=== PATIENT | female | born 1995 | race Caucasian/White ===

== ENCOUNTER 2017-03-25 17:02 | Emergency (ER) | payer OTHER ==
[~2017-03-25] VITALS: Ht 170.1 cm; Wt 72.6 kg
[~2017-03-25 17:02] MED LIST: ALBUTEROL0.09 MG/A2 IH; ALBUTEROL0.09 MG/A2 INH; AMOXICILLIN500 M2 PO; AMOXIL500 MG PO; ANAPROX DS550 MG PO; ATIVAN1 MG PO; AUGMENTIN 875875 MG PO; BACTRIM DS 8001 TA1 PO; BACTROBAN2% TP; BENTYL10 MG PO; BIO-CEF500 MG PO; CEPHALEXIN500 M1 PO; CIPRO500 MG PO; CLEOCIN150 MG PO; CLINDAMYCIN HC300 MG PO; CLINDAMYCIN150 MG PO; CYCLOBENZAPRINE5 M3 PO; DIFLUCAN150 MG PO; FIORICET 325 MG1 TAB PO; FLEXERIL10 MG PO; HYDROCODONE BIT1 T11 PO; IBU-8800 MG PO; IBUPROFEN600 MG PO; K-DUR 20MEQ20 MEQ PO; K-TAB20 MEQ PO; KEFLEX500 MG PO; LEVOFLOXACIN500 MG PO; LIDEX 0.05% CRE15 GM T; MACROBID100 M1 PO; MOTRIN600 MG PO; MOTRIN800 MG PO; Motrin,Rufen800 MG PO; NAPROSYN500 MG PO; NKHM; NORCO 10-325 T1 EACH PO; NORCO 325 MG-51 TAB PO; NORCO 5-325 TA1 EACH PO; PENICILLIN-VK500 MG PO; PEPCID20 MG PO; PERCOCET 325 MG1 TA6 PO; PRENATAL1 TA1 PO; PRENATAL1 TA2 PO; PROGEST50 MG/ML INH; PROGESTERONE50 MG/M1 IM; PROTONIX40 MG PO; Percocet 325 MG1 TAB PO; ROBITUSSIN-AC 160 ML PO; TRINESSA 281 TAB PO; TYLENOL ES500 MG PO; TYLENOL W/CODEI1 TA2 PO; TYLENOL325 M1 PO; TYLENOL500 MG PO; ULTRAM50 MG PO; VICODIN ES 7501 TAB PO; ZOFRAN ODT4 MG SL; ZOFRAN4 MG PO
[2017-03-25] MEDS ORDERED: PENICILLIN VK500 MG PO (17:28)
[2017-03-25] MEDS ORDERED: ULTRAM50 MG PO (17:28)
== END 2017-03-25 17:31 | disposition home or self-care (01) ==
LOC: ED 17:02
DX: K08.89 Other specified disorders of teeth and supporting structures (principal); F17.200 Nicotine dependence, unspecified, uncomplicated

== ENCOUNTER 2019-05-23 23:18 | Emergency (ER) | payer OTHER ==
[~2019-05-23] VITALS: Ht 170.1 cm; Wt 71.2 kg
[~2019-05-23 23:18] MED LIST changes: +PENICILLIN VK500 MG PO
== END 2019-05-24 00:25 | disposition home or self-care (01) ==
LOC: ED 23:18
DX: S60.021A Contusion of right index finger without damage to nail, initial encounter (principal); W22.8XXA Striking against or struck by other objects, initial encounter; Y93.89 Activity, other specified; Y92.89 Other specified places as the place of occurrence of the external cause; Y99.8 Other external cause status

== ENCOUNTER 2019-11-09 13:46 | Inpatient (IN) | payer OTHER ==
[~2019-11-09] VITALS: Ht 170.2 cm; Wt 66.2 kg
[2019-11-09 13:49] VITALS: BP 128/78
[2019-11-09 14:28] LABS: BASO % 0.3 % (0.0-1.0); EOS # 0.6 10*3/uL (0.0-0.4); EOS % 4.6 % (1.0-4.0); HEMATOCRIT 42.3 % (37.0-47.0); HEMOGLOBIN 14.5 g/dl (12.0-16.0); LYMPH # 2.5 10*3/uL (1.3-4.4); LYMPH % 20.1 % (27.0-41.0); MEAN CELL VOLUME 88.5 fl (81.0-99.0); MEAN CORPUSCULAR HGB 30.3 pg (27.0-31.0); MEAN CORPUSCULAR HGB CONC 34.3 g/dl (33.0-37.0); MEAN PLATELET VOLUME 9.1 fl (9.6-12.3); MONO # 0.9 10*3/uL (0.1-1.0); MONO % 7.1 % (3.0-9.0); NEUT # 8.4 10*3/uL (2.3-7.9); NEUT % 67.6 % (47.0-73.0); PLATELET COUNT AUTOMATED 338 10*3/uL (130-400); RED BLOOD COUNT 4.78 10*6/uL (4.10-5.10); WHITE BLOOD COUNT 12.5 10*3/uL (4.8-10.8)
[2019-11-09 14:36] LABS: BILIRUBIN NEGATIVE (NEGATIVE); BLOOD NEGATIVE (NEGATIVE); CLARITY SL CLOUDY (CLEAR); COLOR YELLOW (YELLOW); GLUCOSE NEGATIVE (NEGATIVE); KETONE NEGATIVE (NEGATIVE); LEUKO ESTERASE NEGATIVE (NEGATIVE); NITRITE NEGATIVE (NEGATIVE); PH 7.5 (5.0-9.0); UROBILINOGEN 0.2 E.U./dl (0.2-1.0)
[2019-11-09 14:41] LABS: BACTERIA TRACE; WBC 0-2 wbc/hpf (0-5)
[2019-11-09 14:44] LABS: ALBUMIN 3.9 gm/dl (3.1-4.5); ALKALINE PHOSPHATASE 61 U/L (45-117); BUN 5 mg/dl (7-24); CHLORIDE 109 mmol/L (98-107); CREATININE 0.75 mg/dL (0.55-1.02); LIPASE 56 U/L (73-393); SGOT/AST 18 IU/L (3-35); SGPT/ALT 19 U/L (12-78); SODIUM 142 mmol/L (136-145)
[2019-11-09 14:45] LABS: BETA-HCG, QUANT < 1.0 mIU/mL (1-3)
--- NOTE | 2019-11-09 18:20 | NUR ---
Time: 1819 A 24 year old MALE admitted to under services of ISELA KELLY DO. Pt. arrived via bed from ER. Chief complaint: INTRACTABLE PAIN, UMBILICAL HERNIA. ANU LAWLER
[2019-11-09 18:44] VITALS: BP 124/91
[2019-11-09] MEDS ORDERED: SUBOXONE 8 MG-1 EACH PO (18:47)
--- NOTE | 2019-11-09 19:39 | NUR ---
CALLED DR. GARCIA AWARE OF CONSULT. PT CAN HAVE SIPS WATER UNTIL 430 AM THEN NPO.
--- NOTE | 2019-11-09 19:57 | NUR ---
MEDICATED WITH TORADOL FOR C/O PAIN AROUND HER UMBILICUS RATED AN 8/10.
[2019-11-09 20:00] VITALS: BP 111/93
--- NOTE | 2019-11-09 20:30 | NUR ---
STATES TORADOL SOMEWHAT EFFECTIVE.
[2019-11-09 20:51] LABS: URINE AMPHETAMINES < 1000 (1000ng/ml); URINE BARBITURATES < 200 (200ng/ml); URINE BENZODIAZEPINES < 200 (200ng/ml); URINE CANNABINOIDS (THC) > 50 (50ng/ml); URINE COCAINE > 300 (300ng/ml); URINE METHADONE < 300 (300ng/ml); URINE OPIATES < 300 (300ng/ml); URINE PHENCYCLIDINE < 25 (25ng/ml)
--- NOTE | 2019-11-09 21:40 | NUR ---
MEDICATED WITH DILAUDID FOR C/O PAIN AROUND THE UMBILICUS RATED AN 8/10.
[2019-11-10] VITALS (7 sets, daily range): BP systolic 111–182; BP diastolic 42–98
--- NOTE | 2019-11-10 01:00 | NUR ---
RESTING IN BED ON RIGHT SIDE WITH EYES CLOSED. PAIN MEDICATION GIVEN EARLIER APPARENTLY EFFECTIVE. IV FLUIDS INFUSING ORDERED; CALL LIGHT WITHIN REACH.
--- NOTE | 2019-11-10 03:13 | NUR ---
MEDICATED WITH TORADOL FOR C/O PAIN AROUND UMBILICUS.
--- NOTE | 2019-11-10 05:30 | NUR ---
RESTING IN BED; VOICES NO C/O AT THIS TIME. CALL LIGHT WITHIN REACH.
[2019-11-10 06:23] LABS: BASO # 0.1 10*3/uL (0.0-0.1); BASO % 0.4 % (0.0-1.0); EOS # 0.6 10*3/uL (0.0-0.4); EOS % 5.1 % (1.0-4.0); HEMATOCRIT 37.8 % (37.0-47.0); HEMOGLOBIN 12.7 g/dl (12.0-16.0); LYMPH % 35.2 % (27.0-41.0); MEAN CELL VOLUME 87.7 fl (81.0-99.0); MEAN CORPUSCULAR HGB 29.5 pg (27.0-31.0); MEAN CORPUSCULAR HGB CONC 33.6 g/dl (33.0-37.0); MEAN PLATELET VOLUME 9.3 fl (9.6-12.3); MONO # 0.8 10*3/uL (0.1-1.0); MONO % 7.1 % (3.0-9.0); NEUT % 51.9 % (47.0-73.0); PLATELET COUNT AUTOMATED 299 10*3/uL (130-400); RED BLOOD COUNT 4.31 10*6/uL (4.10-5.10); WHITE BLOOD COUNT 11.5 10*3/uL (4.8-10.8)
--- NOTE | 2019-11-10 06:30 | NUR ---
MEDICATED WITH DILAUDID SLOW IV PUSH FOR C/O PAIN AROUND UMBILICUS.
[2019-11-10 06:32] LABS: CHLORIDE 109 mmol/L (98-107); POTASSIUM 3.8 mmol/L (3.5-5.1); SODIUM 141 mmol/L (136-145)
[2019-11-10 06:43] LABS: ALBUMIN 3.1 gm/dl (3.1-4.5); ALKALINE PHOSPHATASE 53 U/L (45-117); BUN 5 mg/dl (7-24); CREATININE 0.65 mg/dL (0.55-1.02); FREE T4 0.72 ng/dl (0.76-1.46); PHOSPHOROUS 3.5 mg/dL (2.5-4.9); SGOT/AST 11 IU/L (3-35); SGPT/ALT 16 U/L (12-78); TOTAL PROTEIN 5.9 gm/dL (6.4-8.2)
[2019-11-10 07:31] LABS: VITAMIN D, 25-HYDROXY 15.5 ng/mL (30-100)
--- NOTE | 2019-11-10 08:00 | NUR ---
PT SITTING UP IN BED. IVF INFUSING WITH NO PROBLEM. PT STATES HAS PAIN WITH MOVEMENT. SOFT, TENDER TO TOUCH IN ABDOMEN. MEDICATING PER EMAR. CALL LIGHT IN REACH. SEE SHIFT ASSESSMENT.
--- NOTE | 2019-11-10 09:00 | NUR ---
case management attempted to visit with patient, she was out of room for surgery, case management will see at a later time
[2019-11-10] MEDS ORDERED: TYLENOL EXTRA500 M2 PO (11:48)
[2019-11-10] MEDS ORDERED: IBU800 MG PO (11:48)
[2019-11-10] MEDS ORDERED: VITAMIN D22000 UNIT PO (11:53)
--- NOTE | 2019-11-10 12:10 | NUR ---
PT MEDICATED WITH TORADOL IV PER PRN ORDER, SEE EMAR. FOR C/O ABDOMINAL PAIN RATES APIN 5 ON PAIN SCALE 0-10. CALL LIGHT IN REACH.
--- NOTE | 2019-11-10 12:18 | NUR ---
Discharge instructions reviewed with patient/family. Patient receptive and verbalizes understanding. Follow-up care arranged. Written instructions given to patient/family. HEPLOCK REMOVED 2X2 APPLIED. AMBULATORY OFF THE FLOOR WITH VISITOR AT HER SIDE. ANU LAWLER
== END 2019-11-10 12:18 | disposition home or self-care (01) | DRG 228 ==
LOC: ED 13:46 → EDHOLD 17:06 → 4E 17:06
PROVIDERS: Emergency Medicine; Family Medicine; ADMIT Internal Medicine
PROC: 0WQF0ZZ Repair Abdominal Wall, Open Approach (ICD-10-PCS; principal; 2019-11-10)
DX: K42.9 Umbilical hernia without obstruction or gangrene (principal); E44.0 Moderate protein-calorie malnutrition; E87.8 Other disorders of electrolyte and fluid balance, not elsewhere classified; F17.210 Nicotine dependence, cigarettes, uncomplicated; E55.9 Vitamin D deficiency, unspecified; E53.8 Deficiency of other specified B group vitamins; N83.201 Unspecified ovarian cyst, right side; N83.202 Unspecified ovarian cyst, left side; D72.829 Elevated white blood cell count, unspecified; Z68.22 Body mass index [BMI] 22.0-22.9, adult; Z71.6 Tobacco abuse counseling; Z90.49 Acquired absence of other specified parts of digestive tract; Z81.1 Family history of alcohol abuse and dependence; Z80.3 Family history of malignant neoplasm of breast; Z79.899 Other long term (current) drug therapy

== ENCOUNTER 2020-05-28 18:41 | Emergency (ER) | payer OTHER ==
[~2020-05-28] VITALS: Ht 170.1 cm; Wt 66.7 kg
[~2020-05-28 18:41] MED LIST changes: +IBU800 MG PO; +SUBOXONE 8 MG-1 EACH PO; +TYLENOL EXTRA500 M2 PO; +VITAMIN D22000 UNIT PO
[2020-05-28] MEDS ORDERED: Motrin,Rufen800 MG PO (20:28)
== END 2020-05-28 20:33 | disposition home or self-care (01) ==
LOC: ED 18:41
DX: S80.02XA Contusion of left knee, initial encounter (principal); J45.909 Unspecified asthma, uncomplicated; F17.200 Nicotine dependence, unspecified, uncomplicated; Z79.899 Other long term (current) drug therapy; X58.XXXA Exposure to other specified factors, initial encounter; Y93.89 Activity, other specified; Y92.89 Other specified places as the place of occurrence of the external cause; Y99.8 Other external cause status

== ENCOUNTER → 2020-06-22 | Outpatient (CLI) | payer OTHER | END | disposition home or self-care (01) | LOC: COVID19 00:20 | DX: Z03.818 Encounter for observation for suspected exposure to other biological agents ruled out (principal); R69 Illness, unspecified ==

== ENCOUNTER 2021-05-09 14:33 | Emergency (ER) | payer OTHER ==
[~2021-05-09] VITALS: Ht 170.1 cm; Wt 74.4 kg
[2021-05-09] MEDS ORDERED: Motrin,Rufen800 MG PO (16:11)
== END 2021-05-09 15:42 | disposition home or self-care (01) ==
LOC: ED 14:33
DX: S61.011A Laceration without foreign body of right thumb without damage to nail, initial encounter (principal); Z79.899 Other long term (current) drug therapy; Z98.890 Other specified postprocedural states; Z90.49 Acquired absence of other specified parts of digestive tract; X58.XXXA Exposure to other specified factors, initial encounter; Y93.89 Activity, other specified; Y92.89 Other specified places as the place of occurrence of the external cause; Y99.8 Other external cause status

== ENCOUNTER 2021-11-23 15:23 | Emergency (ER) | payer OTHER ==
[~2021-11-23] VITALS: Ht 170.1 cm; Wt 74.4 kg
[2021-11-23 16:37] LABS: BILIRUBIN Negative (Negative); BLOOD 3+ (Negative); CLARITY Cloudy (Clear); COLOR Dark Yellow (Yellow); GLUCOSE Negative (Negative); KETONE Trace (Negative); LEUKO ESTERASE 1+ (Negative); NITRITE Negative (Negative); PH 6.5 (4.5-8.0); SPECIFIC GRAVITY 1.025 (1.001-1.030)
[2021-11-23 17:02] LABS: BASO % 0.2 % (0.0-1.0); EOS # 0.2 10*3/uL (0.0-0.4); EOS % 1.8 % (1.0-4.0); HEMATOCRIT 39.6 % (37.0-47.0); LYMPH # 3.3 10*3/uL (1.3-4.4); LYMPH % 24.7 % (27.0-41.0); MEAN CELL VOLUME 90.6 fl (81.0-99.0); MEAN CORPUSCULAR HGB CONC 35.4 g/dl (33.0-37.0); MEAN PLATELET VOLUME 8.6 fl (9.6-12.3); MONO # 0.9 10*3/uL (0.1-1.0); MONO % 6.5 % (3.0-9.0); NEUT # 8.9 10*3/uL (2.3-7.9); NEUT % 66.5 % (47.0-73.0); PLATELET COUNT AUTOMATED 357 10*3/uL (130-400); RED BLOOD COUNT 4.37 10*6/uL (4.10-5.10); RED CELL DISTRI WIDTH 13.3 % (0-14.5); WHITE BLOOD COUNT 13.3 10*3/uL (4.8-10.8)
[2021-11-23 17:14] LABS: ALKALINE PHOSPHATASE 95 U/L (45-117); BUN 8 mg/dl (7-24); CHLORIDE 107 mmol/L (98-107); CREATININE 0.95 mg/dL (0.55-1.02); LIPASE 31 U/L (73-393); POTASSIUM 3.8 mmol/L (3.5-5.1); SGOT/AST 9 IU/L (3-35); SGPT/ALT 16 U/L (12-78); SODIUM 137 mmol/L (136-145); TOTAL PROTEIN 7.4 gm/dL (6.4-8.2)
[2021-11-23 17:27] LABS: BACTERIA 2+; EPITHELIAL CELLS 21-30
[2021-11-23 17:28] LABS: MUCOUS TRACE
[2021-11-23] MEDS ORDERED: SEPTDS PO (18:04)
[2021-11-23] MEDS ORDERED: IBUPROFEN600 MG PO (18:04)
== END 2021-11-23 18:12 | disposition home or self-care (01) ==
LOC: ED 15:23
PROVIDERS: Physician Assistant
DX: R11.2 Nausea with vomiting, unspecified (principal); R30.0 Dysuria; R10.9 Unspecified abdominal pain

== ENCOUNTER 2021-12-05 10:29 | Emergency (ER) | payer OTHER ==
[~2021-12-05] VITALS: Ht 170.1 cm; Wt 76.2 kg
[~2021-12-05 10:29] MED LIST changes: +SEPTDS PO
[2021-12-05] MEDS ORDERED: PREDNISONE20 M1 PO (13:26)
== END 2021-12-05 13:32 | disposition home or self-care (01) ==
LOC: ED 10:29
DX: R22.0 Localized swelling, mass and lump, head (principal); T36.8X5A Adverse effect of other systemic antibiotics, initial encounter; J45.909 Unspecified asthma, uncomplicated; Z88.1 Allergy status to other antibiotic agents; Z98.890 Other specified postprocedural states; Y92.89 Other specified places as the place of occurrence of the external cause

== ENCOUNTER 2022-04-07 11:48 | Emergency (ER) | payer BC, OTHER ==
[~2022-04-07] VITALS: Ht 170.1 cm; Wt 70.8 kg
[~2022-04-07 11:48] MED LIST changes: +PREDNISONE20 M1 PO
[2022-04-07 14:44] LABS: BASO % 0.2 % (0.0-1.0); EOS # 0.5 10*3/uL (0.0-0.4); EOS % 4.1 % (1.0-4.0); LYMPH # 3.5 10*3/uL (1.3-4.4); LYMPH % 27.4 % (27.0-41.0); MEAN CELL VOLUME 90.5 fl (81.0-99.0); MEAN CORPUSCULAR HGB 32.2 pg (27.0-31.0); MEAN CORPUSCULAR HGB CONC 35.6 g/dl (33.0-37.0); MEAN PLATELET VOLUME 9.1 fl (9.6-12.3); MONO # 1.2 10*3/uL (0.1-1.0); MONO % 9.1 % (3.0-9.0); NEUT # 7.5 10*3/uL (2.3-7.9); NEUT % 58.8 % (47.0-73.0); PLATELET COUNT AUTOMATED 312 10*3/uL (130-400); RED BLOOD COUNT 3.98 10*6/uL (4.10-5.10); RED CELL DISTRI WIDTH 14.2 % (0-14.5); WHITE BLOOD COUNT 12.8 10*3/uL (4.8-10.8)
[2022-04-07 15:00] LABS: ALKALINE PHOSPHATASE 62 U/L (45-117); BUN 11 mg/dl (7-24); CHLORIDE 108 mmol/L (98-107); CREATININE 0.84 mg/dL (0.55-1.02); POTASSIUM 3.1 mmol/L (3.5-5.1); SGOT/AST 12 IU/L (3-35); SGPT/ALT 19 U/L (12-78); SODIUM 140 mmol/L (136-145); TOTAL PROTEIN 6.4 gm/dL (6.4-8.2)
== END 2022-04-07 14:48 ==
LOC: ED 11:48
PROVIDERS: Nurse Practitioner Family
DX: R22.1 Localized swelling, mass and lump, neck (principal); Z88.1 Allergy status to other antibiotic agents; Z98.890 Other specified postprocedural states; Z90.49 Acquired absence of other specified parts of digestive tract; Z98.51 Tubal ligation status

== ENCOUNTER 2023-02-05 12:54 | Emergency (ER) | payer OTHER ==
[~2023-02-05] VITALS: Ht 170.1 cm; Wt 66.2 kg
[2023-02-05] MEDS ORDERED: IBU800 M2 PO (13:30)
== END 2023-02-05 13:51 | disposition home or self-care (01) ==
LOC: ED 12:54
DX: S29.011A Strain of muscle and tendon of front wall of thorax, initial encounter (principal); J45.909 Unspecified asthma, uncomplicated; Z88.2 Allergy status to sulfonamides; Z88.8 Allergy status to other drugs, medicaments and biological substances; Z90.49 Acquired absence of other specified parts of digestive tract; Z98.890 Other specified postprocedural states; Z98.51 Tubal ligation status; F11.10 Opioid abuse, uncomplicated; Z72.0 Tobacco use; X58.XXXA Exposure to other specified factors, initial encounter; Y93.89 Activity, other specified; Y92.89 Other specified places as the place of occurrence of the external cause; Y99.8 Other external cause status

== ENCOUNTER 2023-03-22 11:09 | Emergency (ER) | payer OTHER ==
[~2023-03-22] VITALS: Ht 170.1 cm; Wt 67.1 kg
[~2023-03-22 11:09] MED LIST changes: +IBU800 M2 PO
[2023-03-22] MEDS ORDERED: KETOROLAC10 MG PO (11:30)
[2023-03-22] MEDS ORDERED: PREDNISONE20 M1 PO (11:30)
== END 2023-03-22 11:36 | disposition home or self-care (01) ==
LOC: ED 11:09
DX: M25.531 Pain in right wrist (principal); M25.532 Pain in left wrist; Z88.1 Allergy status to other antibiotic agents; Z90.49 Acquired absence of other specified parts of digestive tract; Z98.890 Other specified postprocedural states; Z98.51 Tubal ligation status; Z87.891 Personal history of nicotine dependence

== ENCOUNTER 2023-10-17 09:37 | Emergency (ER) | payer OTHER ==
[~2023-10-17] VITALS: Ht 170.1 cm; Wt 73.9 kg
[~2023-10-17 09:37] MED LIST changes: +KETOROLAC10 MG PO
[2023-10-17] MEDS ORDERED: BENZONATATE100 M1 PO (11:55)
== END 2023-10-17 12:18 | disposition home or self-care (01) ==
LOC: ED 09:37
DX: B34.9 Viral infection, unspecified (principal); R05.9 Cough, unspecified; J45.909 Unspecified asthma, uncomplicated; Z88.2 Allergy status to sulfonamides; Z88.8 Allergy status to other drugs, medicaments and biological substances; Z90.49 Acquired absence of other specified parts of digestive tract; Z98.51 Tubal ligation status; Z98.890 Other specified postprocedural states; F17.200 Nicotine dependence, unspecified, uncomplicated

== ENCOUNTER → 2024-12-15 | Outpatient (CLI) | payer OTHER ==
[~2024-12-15] MED LIST changes: +BENZONATATE100 M1 PO; +LINEZOLID600 MG PO
[2024-12-15 11:47] LABS: BASO % 0.5 % (0.0-1.0); EOS # 0.2 10*3/uL (0.0-0.4); EOS % 2.2 % (1.0-4.0); HEMATOCRIT 43.5 % (37.0-47.0); MEAN CELL VOLUME 97.3 fl (81.0-99.0); MEAN CORPUSCULAR HGB 33.3 pg (27.0-31.0); MEAN CORPUSCULAR HGB CONC 34.3 g/dl (33.0-37.0); MEAN PLATELET VOLUME 8.3 fl (9.6-12.3); MONO # 0.7 10*3/uL (0.1-1.0); MONO % 9.4 % (3.0-9.0); NEUT # 4.7 10*3/uL (2.3-7.9); NEUT % 60.3 % (47.0-73.0); PLATELET COUNT AUTOMATED 290 10*3/uL (130-400); RED BLOOD COUNT 4.47 10*6/uL (4.10-5.10); RED CELL DISTRI WIDTH 14.2 % (0-14.5); WHITE BLOOD COUNT 7.8 10*3/uL (4.8-10.8)
[2024-12-15 12:24] LABS: ALKALINE PHOSPHATASE 74 U/L (46-116); BUN 11 mg/dl (9-23); CHLORIDE 101 mmol/L (98-107); CHOLESTEROL 185 mg/dL (<200); SGPT/ALT 36 U/L (5-49); TOTAL PROTEIN 7.5 gm/dL (6.0-8.0); TRIGLYCERIDES 556 mg/dl (<150)
== END | disposition home or self-care (01) ==
LOC: LAB 11:25
PROVIDERS: ATTEND Nurse Practitioner Family
DX: Z13.220 Encounter for screening for lipoid disorders (principal); Z13.1 Encounter for screening for diabetes mellitus; R03.0 Elevated blood-pressure reading, without diagnosis of hypertension; E04.9 Nontoxic goiter, unspecified

== ENCOUNTER → 2024-12-16 | Outpatient (CLI) | payer OTHER | END | disposition home or self-care (01) | LOC: US 08:00 | PROVIDERS: ATTEND Nurse Practitioner Family | DX: E04.9 Nontoxic goiter, unspecified (principal) ==

== ENCOUNTER 2025-01-04 01:12 | Emergency (ER) | payer OTHER ==
[~2025-01-04] VITALS: Ht 170.1 cm; Wt 84.4 kg
[2025-01-04] MEDS ORDERED: Acetaminophen/Hydrocodone 5 MG/325 MG TABLET PO ONE ×3 (01:50→04:35)
[2025-01-04] MEDS ORDERED: HYDROCODONE-AC1 EAC1 PO (04:30)
== END 2025-01-04 04:52 ==
LOC: ED 01:12
DX: S82.61XA Displaced fracture of lateral malleolus of right fibula, initial encounter for closed fracture (principal); E87.6 Hypokalemia; E87.1 Hypo-osmolality and hyponatremia; D64.9 Anemia, unspecified; J45.909 Unspecified asthma, uncomplicated; F17.200 Nicotine dependence, unspecified, uncomplicated; Z88.2 Allergy status to sulfonamides; Z88.8 Allergy status to other drugs, medicaments and biological substances; Z98.890 Other specified postprocedural states; Z90.49 Acquired absence of other specified parts of digestive tract; Z98.51 Tubal ligation status; W18.09XA Striking against other object with subsequent fall, initial encounter; Y93.89 Activity, other specified; Y92.009 Unspecified place in unspecified non-institutional (private) residence as the place of occurrence of the external cause; Y99.8 Other external cause status

== ENCOUNTER → 2025-01-05 | Outpatient (CLI) | payer OTHER ==
[~2025-01-05] MED LIST changes: +HYDROCODONE-AC1 EAC1 PO
== END | disposition home or self-care (01) ==
LOC: ORTHO 09:30
PROVIDERS: ATTEND Orthopaedic Surgery
DX: M25.461 Effusion, right knee (principal); R60.0 Localized edema

== ENCOUNTER → 2025-01-13 | Day surgery (SDC) | payer OTHER ==
[2025-01-08 10:04] VITALS: BP 110/72
[~2025-01-13] VITALS: Ht 170.1 cm; Wt 85.7 kg
[2025-01-13] VITALS (7 sets, daily range): BP systolic 130–141; BP diastolic 62–84
[~2025-01-13] MED LIST changes: +ACETAMINOPHEN 100 ML IV ONE; +Albuterol Sulfate 2.5 MG/3 ML VIAL NEB ONE; +Bupivacaine Hydrochloride/Ep 10 ML VIAL ONE; +Bupivacaine Hydrochloride/Ep2 30 ML VIAL ONE; +DEXAMETHASONE SODIUM PHOSP/PRESERVATIVE FREE 10 MG/ML VIAL ONE; +HYDROmorphONE Hydrochloride 0.5 MG/0.5 ML SYRINGE IV SCH; +HYDROmorphONE Hydrochloride 0.5 MG/0.5 ML SYRINGE ONE; +Ketorolac Tromethamine 30 MG/ML VIAL IV ONE; +Lactated Ringer's Solution 0 ML IV ONE; +Lactated Ringer's Solution 1,000 ML IV ONE; +Lactated Ringer's Solution 1,000 ML IV SCH; +Midazolam Hydrochloride 2 MG/2 ML VIAL IV ONE; +PROPOFOL 200 MG/20 ML VIAL IV ONE; +Ropivacaine Hydrochloride 5 MG/ML 20 ML AMP IJ ONE; +SEVOFLURANE 250 ML BOT INH ONE; +ceFAZolin sodium 2GM/20ML IV ONE; +ceFAZolin sodium/sodium chlor 0 ML IV ONE; +ceFAZolin sodium/sodium chlor 20 ML IV ONE; +fentaNYL CITRATE 100 MCG/2 ML VIAL IV ONE
== END | disposition home or self-care (01) ==
LOC: SDC 01-06 08:45
PROVIDERS: ATTEND Orthopaedic Surgery
DX: S82.841A Displaced bimalleolar fracture of right lower leg, initial encounter for closed fracture (principal); S93.421A Sprain of deltoid ligament of right ankle, initial encounter; I10 Essential (primary) hypertension; J45.909 Unspecified asthma, uncomplicated; G89.18 Other acute postprocedural pain; F17.210 Nicotine dependence, cigarettes, uncomplicated; Z98.891 History of uterine scar from previous surgery; Z90.49 Acquired absence of other specified parts of digestive tract; Z98.51 Tubal ligation status; Z98.890 Other specified postprocedural states; Z79.899 Other long term (current) drug therapy; Z88.8 Allergy status to other drugs, medicaments and biological substances; Z80.3 Family history of malignant neoplasm of breast; Z80.0 Family history of malignant neoplasm of digestive organs; W00.2XXA Other fall from one level to another due to ice and snow, initial encounter; Y93.89 Activity, other specified; Y92.89 Other specified places as the place of occurrence of the external cause; Y99.8 Other external cause status

== ENCOUNTER → 2025-01-29 | Outpatient (CLI) | payer OTHER ==
[~2025-01-29] MED LIST changes: -ACETAMINOPHEN 100 ML IV ONE; -Albuterol Sulfate 2.5 MG/3 ML VIAL NEB ONE; -Bupivacaine Hydrochloride/Ep 10 ML VIAL ONE; -Bupivacaine Hydrochloride/Ep2 30 ML VIAL ONE; -DEXAMETHASONE SODIUM PHOSP/PRESERVATIVE FREE 10 MG/ML VIAL ONE; -HYDROmorphONE Hydrochloride 0.5 MG/0.5 ML SYRINGE IV SCH; -HYDROmorphONE Hydrochloride 0.5 MG/0.5 ML SYRINGE ONE; -Ketorolac Tromethamine 30 MG/ML VIAL IV ONE; -Lactated Ringer's Solution 0 ML IV ONE; -Lactated Ringer's Solution 1,000 ML IV ONE; -Lactated Ringer's Solution 1,000 ML IV SCH; -Midazolam Hydrochloride 2 MG/2 ML VIAL IV ONE; -PROPOFOL 200 MG/20 ML VIAL IV ONE; -Ropivacaine Hydrochloride 5 MG/ML 20 ML AMP IJ ONE; -SEVOFLURANE 250 ML BOT INH ONE; -ceFAZolin sodium 2GM/20ML IV ONE; -ceFAZolin sodium/sodium chlor 0 ML IV ONE; -ceFAZolin sodium/sodium chlor 20 ML IV ONE; -fentaNYL CITRATE 100 MCG/2 ML VIAL IV ONE
== END | disposition home or self-care (01) ==
LOC: ORTHO 07:43
PROVIDERS: ATTEND Orthopaedic Surgery
DX: S82.841D Displaced bimalleolar fracture of right lower leg, subsequent encounter for closed fracture with routine healing (principal); X58.XXXD Exposure to other specified factors, subsequent encounter

== ENCOUNTER → 2025-02-13 | Outpatient (CLI) | payer OTHER | END | disposition home or self-care (01) | LOC: ORTHO 08:59 | PROVIDERS: ATTEND Orthopaedic Surgery | DX: S82.841D Displaced bimalleolar fracture of right lower leg, subsequent encounter for closed fracture with routine healing (principal); X58.XXXD Exposure to other specified factors, subsequent encounter ==

== ENCOUNTER → 2025-02-27 | Outpatient (CLI) | payer OTHER | END | disposition home or self-care (01) | LOC: ORTHO 01:13 | PROVIDERS: ATTEND Orthopaedic Surgery | DX: S82.491D Other fracture of shaft of right fibula, subsequent encounter for closed fracture with routine healing (principal); S82.841D Displaced bimalleolar fracture of right lower leg, subsequent encounter for closed fracture with routine healing; Z98.890 Other specified postprocedural states; X58.XXXD Exposure to other specified factors, subsequent encounter ==

== ENCOUNTER → 2025-04-10 | Outpatient (CLI) | payer OTHER | END | disposition home or self-care (01) | LOC: ORTHO 00:54 | PROVIDERS: ATTEND Orthopaedic Surgery | DX: S82.841D Displaced bimalleolar fracture of right lower leg, subsequent encounter for closed fracture with routine healing (principal); X58.XXXD Exposure to other specified factors, subsequent encounter ==